=== PATIENT | male | born 1975 | race Two or more races ===

== ENCOUNTER 2018-04-27 20:51 | Inpatient (IN) | payer OTHER ==
[~2018-04-27] VITALS: Ht 182.9 cm; Wt 83.4 kg
[2018-04-27 21:33] LABS: Basophils # (auto) 0 uL; Basophils % (auto) 0.2 % (0.0-2.0); Eosinophils # (auto) 0.1 uL; Eosinophils % (auto) 0.3 % (0.0-7.0); Hematocrit 39.7 % (41.0-53.0); Hemoglobin 13.9 g/dL (13.5-17.5); Lymphocytes # (auto) 0.9 uL; Lymphocytes % (auto) 5.2 % (10.0-50.0); Mean Corpuscular Hemoglobin 30.3 pg (28.0-32.0); Mean Corpuscular Volume 86.6 fL (80.0-100.0); Monocytes # (auto) 1.1 uL; Monocytes % (auto) 6.8 % (0.0-12.0); Neutrophils # (auto) 14.8 uL; Neutrophils % (auto) 87.5 % (37.0-80.0); Platelet Count (auto) 166 10^3/uL (140-450); Red Blood Cells 4.59 10^6/uL (4.5-5.90); Red Cell Distribution Width 13.3 % (11.8-14.3); White Blood Cell 16.9 10^3/uL (4.4-10.8)
[2018-04-27 22:10] LABS: Urine Bacteria NONE SEEN /hpf (None Seen); Urine Blood 1+ /uL (Negative); Urine Specific Gravity 1.007 (1.001-1.035); Urine WBC <1 /hpf (0 - 3)
[2018-04-27 22:14] LABS: Albumin 4.4 g/dL (3.4-5.0); BUN/Creatinine Ratio 10.6; Bilirubin, Total 1.2 mg/dL (0.2-1.0); Calcium 8.9 mg/dL (8.5-10.1); Potassium 3.6 mmol/L (3.5-5.1); Total Protein 7.7 g/dL (6.4-8.2)
[2018-04-28] MEDS ORDERED: CLINDAMYCIN 900MG IV 50 ML IV ONE (01:51)
[2018-04-28] MEDS ORDERED: cefTRIAXone 1GM/10ml IVPUSH 10 ML IV ONE ×2 (02:00→10:08)
[2018-04-28] MEDS: CLINDAMYCIN 900MG IV 50 ML IV ONE (02:05)
[2018-04-28] MEDS ORDERED: MEPERIDINE HCL (50 MG/ML) 1 ML VIAL IV ONE (02:45)
[2018-04-28] MEDS ORDERED: ONDANSETRON HCL 4 MG/2 ML VIAL IV PRN ×2 (09:30→14:45)
[2018-04-28] MEDS ORDERED: ACETAMINOPHEN 500 MG TAB PO PRN (09:30)
[2018-04-28] MEDS ORDERED: HYDROcodone-ACET 5/325MG TAB PO PRN (09:30)
[2018-04-28] MEDS: CLINDAMYCIN 600MG IV 50 ML IV SCH ×2 (10:16→17:37)
[2018-04-28] MEDS ORDERED: TEMAZEPAM 15 MG CAP PO PRN (14:45)
[2018-04-28] MEDS ORDERED: ACETAMINOPHEN 325 MG TAB PO PRN (14:45)
[2018-04-28] MEDS: HYDROcodone-ACET 5/325MG TAB PO PRN (17:37)
[2018-04-28] MEDS: SODIUM CHLOR 0.9% PF (SALINE LOCK) 10ML VIAL/SYR IV SCH (22:00)
[2018-04-28 22:06] VITALS: BP 140/73
[2018-04-29 01:29] VITALS: BP 140/73
[2018-04-29] MEDS: CLINDAMYCIN 600MG IV 50 ML IV SCH ×3 (02:28→17:51)
[2018-04-29] MEDS: cefTRIAXone 1GM/10ml IVPUSH 10 ML IV SCH (02:28)
[2018-04-29] MEDS: HYDROcodone-ACET 5/325MG TAB PO PRN ×2 (02:39→19:54)
[2018-04-29 04:54] VITALS: BP 112/71
[2018-04-29] MEDS: SODIUM CHLOR 0.9% PF (SALINE LOCK) 10ML VIAL/SYR IV SCH ×3 (06:00→22:00)
[2018-04-29 06:52] LABS: Basophils # (auto) 0 uL; Basophils % (auto) 0.3 % (0.0-2.0); Eosinophils # (auto) 0.4 uL; Hematocrit 38.5 % (41.0-53.0); Hemoglobin 12.9 g/dL (13.5-17.5); Lymphocytes # (auto) 1.2 uL; Lymphocytes % (auto) 8.5 % (10.0-50.0); Mean Corpuscular Hemoglobin 29.6 pg (28.0-32.0); Mean Corpuscular Hgb Conc. 33.6 g/dL (32.0-36.0); Monocytes # (auto) 1.3 uL; Monocytes % (auto) 9.3 % (0.0-12.0); Neutrophils # (auto) 11.4 uL; Neutrophils % (auto) 78.9 % (37.0-80.0); Platelet Count (auto) 132 10^3/uL (140-450); Red Blood Cells 4.37 10^6/uL (4.5-5.90); Red Cell Distribution Width 13.4 % (11.8-14.3); White Blood Cell 14.4 10^3/uL (4.4-10.8)
[2018-04-29 07:06] LABS: Albumin 3.3 g/dL (3.4-5.0); Calcium 8.7 mg/dL (8.5-10.1); Potassium 4.3 mmol/L (3.5-5.1)
[2018-04-29 07:09] LABS: BUN/Creatinine Ratio 10.2
[2018-04-29 07:11] LABS: Bilirubin, Total 0.9 mg/dL (0.2-1.0)
[2018-04-29 08:54] VITALS: BP 108/64
[2018-04-29] MEDS: MULTIPLE VITAMIN TAB PO SCH (10:34)
[2018-04-29 12:59] VITALS: BP 115/58
[2018-04-29] MEDS ORDERED: MORPHINE SULFATE 8mg/ml INJ SDV IV PRN (16:00)
[2018-04-29 17:51] VITALS: BP 114/71
[2018-04-29] MEDS: DOCUSATE SOD 100 MG CAP PO PRN (17:52)
[2018-04-29 22:00] VITALS: BP 120/66
[2018-04-30] MEDS: CLINDAMYCIN 600MG IV 50 ML IV SCH ×2 (02:00→10:18)
[2018-04-30] MEDS: cefTRIAXone 1GM/10ml IVPUSH 10 ML IV SCH (02:00)
[2018-04-30 05:00] VITALS: BP 118/67
[2018-04-30] MEDS: SODIUM CHLOR 0.9% PF (SALINE LOCK) 10ML VIAL/SYR IV SCH ×3 (06:26→22:26)
[2018-04-30 08:00] VITALS: BP 120/66
[2018-04-30] MEDS: MULTIPLE VITAMIN TAB PO SCH (10:18)
[2018-04-30 12:00] VITALS: BP 125/72
[2018-04-30] MEDS ORDERED: GASTROGRAFIN 30 ML SOL ONE (14:54)
[2018-04-30 15:00] VITALS: BP 122/72
[2018-04-30] MEDS ORDERED: IOHEXOL 300 MG/ML 100ML BOTTLE IJ ONE (17:09)
[2018-04-30] MEDS: PRO-STAT 64 30ML PO SCH (18:21)
[2018-04-30] MEDS: HYDROcodone-ACET 5/325MG TAB PO PRN (20:09)
[2018-04-30] MEDS: DOCUSATE SOD 100 MG CAP PO PRN (20:09)
[2018-04-30 22:00] VITALS: BP 131/74
[2018-04-30] MEDS: ASCORBIC ACID 500 MG TAB PO SCH (22:24)
[2018-04-30] MEDS: AMOXICILLIN/CLAVUL 875 MG TAB PO SCH (22:24)
[2018-05-01 05:00] VITALS: BP 128/68
[2018-05-01] MEDS: SODIUM CHLOR 0.9% PF (SALINE LOCK) 10ML VIAL/SYR IV SCH ×3 (06:00→22:10)
[2018-05-01] MEDS: PRO-STAT 64 30ML PO SCH ×2 (07:59→17:28)
[2018-05-01 08:39] VITALS: BP 134/69
[2018-05-01] MEDS: MULTIPLE VITAMIN TAB PO SCH (10:27)
[2018-05-01] MEDS: AMOXICILLIN/CLAVUL 875 MG TAB PO SCH ×2 (10:28→22:08)
[2018-05-01] MEDS: ASCORBIC ACID 500 MG TAB PO SCH ×2 (10:28→22:08)
[2018-05-01] MEDS ORDERED: LIDOCAINE HCL (LOCAL ANESTH.) 0.5 % 50ML MDV IJ ONE (11:45)
[2018-05-01 12:58] VITALS: BP 136/64
[2018-05-01] MEDS: HYDROcodone-ACET 5/325MG TAB PO PRN ×2 (13:56→19:02)
[2018-05-01 17:00] VITALS: BP 139/75
[2018-05-01 22:00] VITALS: BP 125/74
[2018-05-02] VITALS (7 sets, daily range): BP systolic 116–125; BP diastolic 76–83
[2018-05-02] MEDS: SODIUM CHLOR 0.9% PF (SALINE LOCK) 10ML VIAL/SYR IV SCH ×2 (06:00→10:20)
[2018-05-02 06:21] LABS: Hematocrit 42.2 % (41.0-53.0); Hemoglobin 14.5 g/dL (13.5-17.5); Mean Corpuscular Hgb Conc. 34.3 g/dL (32.0-36.0); Mean Corpuscular Volume 87.4 fL (80.0-100.0); Platelet Count (auto) 202 10^3/uL (140-450); Red Blood Cells 4.83 10^6/uL (4.5-5.90); Red Cell Distribution Width 13.1 % (11.8-14.3); White Blood Cell 6.4 10^3/uL (4.4-10.8)
[2018-05-02 06:24] LABS: Band Neutrophils % (manual) 0; Basophils % (manual) 0 (0.0-2.0); Blast Cells 0; Metamyelocytes % 0; Myelocytes % 0; Promyelocytes % 0; Reactive Lymphocytes 0
[2018-05-02 07:36] LABS: Eosinophils % (manual) 3 (0-7); Lymphocytes % (manual) 27 (10.0-50.0); Monocytes % (manual) 9 (0-12)
[2018-05-02] MEDS: PRO-STAT 64 30ML PO SCH ×2 (08:49→18:00)
[2018-05-02] MEDS: HYDROcodone-ACET 5/325MG TAB PO PRN (08:59)
[2018-05-02] MEDS: MULTIPLE VITAMIN TAB PO SCH (10:18)
[2018-05-02] MEDS: ASCORBIC ACID 500 MG TAB PO SCH (10:18)
[2018-05-02] MEDS: AMOXICILLIN/CLAVUL 875 MG TAB PO SCH (10:18)
== END 2018-05-02 21:55 | DRG 729 ==
LOC: ER 20:51 → OVERFLOW 20:52 → EEVIPCON 20:52 → EAST 04-28 18:25
PROVIDERS: ADMIT Internal Medicine; ATTEND Internal Medicine Pulmonary Disease
DX: N50.89 Other specified disorders of the male genital organs (principal); L02.215 Cutaneous abscess of perineum; K61.1 Rectal abscess; N50.819 Testicular pain, unspecified; E78.5 Hyperlipidemia, unspecified; D72.829 Elevated white blood cell count, unspecified; K59.00 Constipation, unspecified; N49.2 Inflammatory disorders of scrotum; G47.00 Insomnia, unspecified; Z71.3 Dietary counseling and surveillance
CPT/HCPCS: 36415; 74177; 76870; 80053; 81001; 85007; 85025; 85027; 85652; 87081; 96365; 96375; J3490